=== PATIENT | male | born 1970 | race Caucasian/White ===

== ENCOUNTER → 2016-11-20 | Outpatient (CLI) | payer OTHER ==
--- NOTE | 2016-11-20 16:35 | CARD ---
APPROVED REPORT EXAM: Two-dimensional and M-mode echocardiogram with Doppler and color Doppler. Other Information Quality : GoodHR: 71bpm Rhythm : NSR INDICATION Dyspnea 2D DIMENSIONS RVDd3.4 (2.9-3.5cm)Left Atrium(2D)3.9 (1.6-4.0cm) IVSd0.8 (0.7-1.1cm)Aortic Root(2D)3.3 (2.0-3.7cm) LVDd5.7 (3.9-5.9cm)LVOT Diameter2.3 (1.8-2.4cm) PWd0.8 (0.7-1.1cm)LVDs4.0 (2.5-4.0cm) FS (%) 31.2 %SV112.4 ml LVEF(%)57.9 (>50%) M-Mode DIMENSIONS LVEF(%)58 (>50%) Aortic Valve AoV Peak Yeyo.134.4cm/sAoV VTI26.9cm AO Peak GR.7.2mmHgLVOT Peak Yeyo.119.5cm/s LVOT VTI 25.25cmAO Mean GR.4mmHg Mitral Valve MV E Xipvqqib12.1cm/sMV DECEL CCSL587vq MV A Vtxaysaw15.2cm/sMV E Mean Gr.2mmHg MV EWX89dnK/A Ratio1.0 MV A Nejhdqgb072buXQY (PHT)3.30cm2 TDI E/Lateral E'7.7E/Medial E'11.2 Pulmonary Valve PV Peak Csgtppnb694.6cm/sPV Peak Grad.4mmHg RVOT VTI12.9cm Tricuspid Valve TR P. Rsrtpkow086vo/sRAP TPUDEHNM0dsEw TR Peak Gr.42zhXdQTHK80wnVa Pulmonary Vein S1 Kziwhjex15.3cm/sD2 Ncfjxhvc01.8cm/s PVa ilckelhw238fhsv LEFT VENTRICLE The left ventricle is normal size. There is normal left ventricular wall thickness. Left ventricle sy stolic function is normal. The Ejection Fraction is 55-60%. There is normal LV segmental wall motion. The left ventricular diastolic function and filling is normal for age. There is no ventricular septa l defect visualized. RIGHT VENTRICLE The right ventricle is normal size. The right ventricular systolic function is normal. ATRIA The left atrium size is normal. The right atrium size is normal. The interatrial septum is intact wit h no evidence for an atrial septal defect or patent foramen ovale as noted on 2-D or Doppler imaging. AORTIC VALVE The aortic valve is normal in structure and function. The aortic valve is trileaflet. Doppler and Col or Flow revealed no significant aortic regurgitation. There is no significant aortic valvular stenosi s. MITRAL VALVE The mitral valve is normal in structure and function. There is no evidence of mitral valve prolapse. There is no mitral valve stenosis. Doppler and Color Flow revealed trace mitral regurgitation. TRICUSPID VALVE The tricuspid valve is normal in structure. Doppler and Color Flow revealed trace tricuspid regurgita tion. There is no pulmonary hypertension. The PA pressure was estimated at 28 mmHg. There is no tricu spid valve stenosis. PULMONIC VALVE The pulmonary valve is normal in structure. Doppler and Color Flow revealed trace pulmonic valvular r egurgitation. There is no pulmonic valvular stenosis. GREAT VESSELS The aortic root is normal in size. The ascending aorta is normal in size. Normal pulmonary venous zackary w (Doppler). The IVC is normal in size and collapses >50% with inspiration. PERICARDIAL EFFUSION There is no pleural effusion. There is no evidence of significant pericardial effusion. Critical Notification Critical Value: No <Conclusion> Left ventricle systolic function is normal. The Ejection Fraction is 55-60%. There is normal LV segmental wall motion. Trace mitral regurgitation. Trace tricuspid regurgitation. The PA pressure was estimated at 28 mmHg. There is no evidence of significant pericardial effusion.
== END | disposition home or self-care (01) ==
LOC: ECHO 12:56
PROVIDERS: ATTEND Internal Medicine Cardiovascular Disease
DX: R06.09 Other forms of dyspnea (principal); I34.0 Nonrheumatic mitral (valve) insufficiency; I37.1 Nonrheumatic pulmonary valve insufficiency
CPT/HCPCS: 93306

== ENCOUNTER → 2021-03-01 | Outpatient (CLI) | payer OTHER ==
--- NOTE | 2021-03-01 10:16 | KCIC ---
PROCEDURE: CT CALCIUM SCORE MD ORDERED COMPARISON: None. INDICATIONS: CT SCREENING FOR CORONARY ARTERY REPORTED RISK FACTORS: Hypertension, elevated triglycerides TECHNIQUE: Low-dose prospectively gated CT images of the heart were obtained and quantitative analys is of coronary artery calcification was performed. Comparison was made to a patient database of general [facility] age and gender. One or more of the following individualized dose reduction techniques were utilized for this study: 1. ? Automated exposure control. 2. ? Adjustment of the mA and/or kV according to patient size. 3. ? Use of iterative reconstruction technique. RADIATION: Total Dose Length Product (DLP): mGy-cm CT Dose Index Volume (CTDIvol): mGy (highest value reported) BACKGROUND: Coronary artery calcification is a direct marker for coronary atherosclerosis. A coronar y artery calcium scan is a low dose CT scan which sums all visible calcium in the coronary tree to pr ovide each patient with a coronary artery calcium score (CACS). As the calcium score increases, so d oes future cardiovascular risk. The calcium score is superior to traditional risk factors for risk s tratification and permits more effective prevention strategies and tailored medical therapy. CALCIUM SCORE: Left main: 0 LAD: 0 LCX: 0 RCA: 0 Total Agatston Score: 0 Percentile (%) for age and gender: 0 OTHER OBSERVATIONS: Bilateral gynecomastia, left greater than right. GUIDELINES BASED ON SCORE OF ZERO, WITH RISK FACTORS: Moderate risk. <1% annualized risk of myocardial infarction or cardiac . Symptomatic patients with calcium score of zero may have non-calcified plaque and require further funmilayo luation. Recommend risk factor modification. LDL target <130 mg/dl. Retest in five years. References: 1. ACCF/AHA 2007 Clinical Expert Consensus Document on Coronary Artery Calcium Scoring by Computed T omography in Global Cardiovascular Risk Assessment and in Evaluation of Patients with Chest Pain Cir culation, 2007, 115:402-426 2. Sheron et al. The [place] Heart Study, J Am Jere Cardiol, 2005, 46:158-65 3. Glen Valdez et al. Executive Summary of the Screening for Heart Attack Prevention and Eradication(S HAPE), Task Force Report, Am J Card, 2006, 98:2-15 4. Expert Panel on Detection, Evaluation, and Treatment of High Blood Cholesterol in Adults. 2001. E xecutive Summary of the Third Report of evaluation and treatment of high blood cholesterol in adults (Adult Treatment Panel III). DEVON, 285:[id number] Electronically signed by: Jamaica Leavitt MD (03/01/2021 10:13 AM) [id number]
== END ==
LOC: KCIC CT 07:55
PROVIDERS: ATTEND Physician Assistant Medical
DX: I25.10 Atherosclerotic heart disease of native coronary artery without angina pectoris (principal); I10 Essential (primary) hypertension; N62 Hypertrophy of breast
CPT/HCPCS: 75571